=== PATIENT | female | born 1995 | race Caucasian/White ===

== ENCOUNTER 2016-10-24 01:28 | Emergency (ER) | payer OTHER ==
--- NOTE | 2016-10-24 02:03 | ED NURSING NOTES ---
Clinical Report - [facility] [address] [place] [place] [address] 10/24/2016 1:29 [id number] Triage time 01:40 Oct 24 2016. Acuity: LEVEL 3. Chief Complaint: (IUD problem). Alert. JULIO COMA SCORE: Julio Coma Scale: 15- eyes open spontaneously (4); best verbal response- oriented x 4 (5); best motor response- obeys commands (6). --01:49 Jimmie Fisher R.N. 01:40 10/24/16. BP: 125/83. HR: 94 (regular). RR: 16. O2 saturation: 99%. Temp: 100.2 F. Pain level now: 10. Additional comments: Vaginal Discomfort. --01:49 Jimmie Fisher R.N. Weight: 88.4 kg stated. Height/Length: 67 inches Per Patient. BMI: 30.6. --01:41 Jimmie Fisher R.N. Medications Nextplanan . --01:48 Jimmie Fisher R.N. The following entry was struck by Jimmie Fisher R.N., 01:48 (10/24/16) Reason - other. <<STRICKEN ENTRY-- None. --01:46 Jimmie Fisher R.N. --END STRIKE>>. Allergies Amoxicillin. Definite Moderate(hives) --01:46 Jimmie Fisher R.N. Medication/allergy information source: the patient. --01:49 Jimmie Fisher R.N. History Arrived by private vehicle. Historian: patient. Unaccompanied. Primary physician (Cynthia Mabry). ( Pt thought that he IUD had slipped out ~ 3 months ago and she made an appointment to have it checked and the clinic that she went to didn't even check but rather placed a control in her arm. Now she feels as though her IUD is trying to slip out.). This started today. Onset. (about 1 hour ago). Last oral intake by patient was (about 5 hours ago). Treatment PNEUMATIC TUBE FITTER: None. PAST MEDICAL HX: Immunizations: up-to-date. Last normal menstrual period- Nexplanan. Denies current . SURGERY HX: No history of previous surgery. SOCIAL HX: Heavy tobacco smoker (cigarette)- less than 1 pack per day. History of drug use: marijuana. No alcohol use. No infectious disease exposure. ABUSE ASSESSMENT: No report of abuse. FALL RISK ASSESSMENT: Fall risk assessment completed. No fall risk identified. NUTRITIONAL RISK ASSESSMENT: The nutritional risk assessment revealed no deficiencies. FUNCTIONAL ASSESSMENT: Functional assessment: no impairments noted. LEARNING NEEDS ASSESSMENT: The learning needs assessment revealed no barriers. SKIN INTEGRITY ASSESSMENT: Skin integrity risk assessment completed. No skin integrity risk identified. --01:49 Jimmie Fisher R.N. Treatment PNEUMATIC TUBE FITTER: Took Tylenol. Symptoms did not improve after treatment. --01:50 Jimmie Fisher R.N. PROBLEMS: Lifestyle / Substance Problems. Contusion. Pyelonephritis. Gastroesophageal Reflux Disease. Dysuria. Ovarian Cyst. Cystitis. . Abdominal Pain. Costochondritis. Bronchitis. Vaginal Bleeding. Immunizations. LNMP - Last Normal Menstrual Period. Sinusitis. URI. Chest Pain of GI Origin. --01:47 Jimmie Fisher R.N. ADDITIONAL SURGERIES: no known surgeries. Interventions ID band on patient. To treatment room. --01:49 Jimmie Fisher R.N. PHYSICAL ASSESSMENT Ambulatory to room. GENERAL / NEURO / PSYCH: Alert. Oriented X 4. HEENT: Mucous membranes are pink. RESPIRATORY: Respirations not labored. CVS: Normal heart rate and rhythm. GI / : Abdomen soft and nontender. No vaginal bleeding. No vaginal discharge. SKIN: Skin is warm and dry. --01:50 Jimmie Fisher R.N. NURSING PROGRESS NOTES Patient gowned. Reassurance given to the patient. Patient identifiers checked. Call light placed in reach. Side rails up x 1. Bed placed in lowest position. Brakes of bed on. Patient ready for evaluation- chart flagged and ED physician notified. --01:50 Jimmie Fisher R.N. DISPOSITION / DISCHARGE Departure time: 0205. --04:27 Jimmie Fisher R.N. 02:05. Condition at departure: unchanged. No learning barriers present. Discharge instructions provided and reviewed with the patient. Reviewed medication(s) (continue taking your usual medications). Reviewed referral to family practice for followup. Patient verbalized understanding. Written instructions provided in [place]ic. The patient was discharged by the physician. She was discharged home and unaccompanied at time of discharge. She left the Emergency Department ambulatory and via private vehicle. Patient driving. --04:30 Jimmie Fisher R.N. Locked/Released at 10/24/2016 4:31 by Jimmie Fisher R.N.
--- NOTE | 2016-10-24 02:03 | ED NURSING NOTES ---
Clinical Report - [facility] [address] [place] [address] 10/24/2016 1:29 [id number] Triage time 01:40 Oct 24 2016. Acuity: LEVEL 3. Chief Complaint: (IUD problem). Alert. JULIO COMA SCORE: Julio Coma Scale: 15- eyes open spontaneously (4); best verbal response- oriented x 4 (5); best motor response- obeys commands (6). --01:49 Jimmie Fisher R.N. 01:40 10/24/16. BP: 125/83. HR: 94 (regular). RR: 16. O2 saturation: 99%. Temp: 100.2 F. Pain level now: 10. Additional comments: Vaginal Discomfort. --01:49 Jimmie Fisher R.N. Weight: 88.4 kg stated. Height/Length: 67 inches Per Patient. BMI: 30.6. --01:41 Jimmie Fisher R.N. Medications Nextplanan . --01:48 Jimmie Fisher R.N. The following entry was struck by Jimmie Fisher R.N., 01:48 (10/24/16) Reason - other. <<STRICKEN ENTRY-- None. --01:46 Jimmie Fisher R.N. --END STRIKE>>. Allergies Amoxicillin. Definite Moderate(hives) --01:46 Jimmie Fisher R.N. Medication/allergy information source: the patient. --01:49 Jimmie Fisher R.N. History Arrived by private vehicle. Historian: patient. Unaccompanied. Primary physician (Cynthia Mabry). ( Pt thought that he IUD had slipped out ~ 3 months ago and she made an appointment to have it checked and the clinic that she went to didn't even check but rather placed a control in her arm. Now she feels as though her IUD is trying to slip out.). This started today. Onset. (about 1 hour ago). Last oral intake by patient was (about 5 hours ago). Treatment GEAR TESTER: None. PAST MEDICAL HX: Immunizations: up-to-date. Last normal menstrual period- Nexplanan. Denies current . SURGERY HX: No history of previous surgery. SOCIAL HX: Heavy tobacco smoker (cigarette)- less than 1 pack per day. History of drug use: marijuana. No alcohol use. No infectious disease exposure. ABUSE ASSESSMENT: No report of abuse. FALL RISK ASSESSMENT: Fall risk assessment completed. No fall risk identified. NUTRITIONAL RISK ASSESSMENT: The nutritional risk assessment revealed no deficiencies. FUNCTIONAL ASSESSMENT: Functional assessment: no impairments noted. LEARNING NEEDS ASSESSMENT: The learning needs assessment revealed no barriers. SKIN INTEGRITY ASSESSMENT: Skin integrity risk assessment completed. No skin integrity risk identified. --01:49 Jimmie Fisher R.N. Treatment GEAR TESTER: Took Tylenol. Symptoms did not improve after treatment. --01:50 Jimmie Fisher R.N. PROBLEMS: Lifestyle / Substance Problems. Contusion. Pyelonephritis. Gastroesophageal Reflux Disease. Dysuria. Ovarian Cyst. Cystitis. . Abdominal Pain. Costochondritis. Bronchitis. Vaginal Bleeding. Immunizations. LNMP - Last Normal Menstrual Period. Sinusitis. URI. Chest Pain of GI Origin. --01:47 Jimmie Fisher R.N. ADDITIONAL SURGERIES: no known surgeries. Interventions ID band on patient. To treatment room. --01:49 Jimmie Fisher R.N. PHYSICAL ASSESSMENT Ambulatory to room. GENERAL / NEURO / PSYCH: Alert. Oriented X 4. HEENT: Mucous membranes are pink. RESPIRATORY: Respirations not labored. CVS: Normal heart rate and rhythm. GI / : Abdomen soft and nontender. No vaginal bleeding. No vaginal discharge. SKIN: Skin is warm and dry. --01:50 Jimmie Fisher R.N. NURSING PROGRESS NOTES Patient gowned. Reassurance given to the patient. Patient identifiers checked. Call light placed in reach. Side rails up x 1. Bed placed in lowest position. Brakes of bed on. Patient ready for evaluation- chart flagged and ED physician notified. --01:50 Jimmie Fisher R.N. DISPOSITION / DISCHARGE Departure time: 0205. --04:27 Jimmie Fisher R.N. 02:05. Condition at departure: unchanged. No learning barriers present. Discharge instructions provided and reviewed with the patient. Reviewed medication(s) (continue taking your usual medications). Reviewed referral to family practice for followup. Patient verbalized understanding. Written instructions provided in Setswana. The patient was discharged by the physician. She was discharged home and unaccompanied at time of discharge. She left the Emergency Department ambulatory and via private vehicle. Patient driving. --04:30 Jimmie Fisher R.N. Locked/Released at 10/24/2016 4:31 by Jimmie Fisher R.N.
--- NOTE | 2016-10-24 02:03 | ED CLINICAL REPORT ---
Clinical Report - Physicians/Mid Levels [facility] [address] [place] [address] 10/24/2016 1:29 Patient: DANETTE JIMENEZ Time Seen: 01:48. Arrived- By private vehicle. Historian- patient. HISTORY OF PRESENT ILLNESS Chief Complaint: Feels an IUD string in the vagina. This started about 1 hour ago and still present. It was gradual in onset and has been waxing/waning. The symptoms are described as moderate. Modifying factors- worsened by movement and walking. Relieved by rest. No abdominal pain, pelvic pain, vaginal pain, low back pain or flank pain. No abnormal bleeding, vaginal discharge, vaginal itching, pain with urination or urinary frequency. No urgency of urination. Sexually active. Uses an IUD as a means of control (and depo implant). (Pt thought that he IUD had slipped out ~ 3 months ago and she made an appointment to have it checked and the clinic that she went to didn't even check but rather placed a control in her arm. Now she feels as though her IUD is trying to slip out - she can feel the string in the vaginal). Similar symptoms previously: Recent medical care: The patient was seen recently in a clinic. Seen for similar symptoms. REVIEW OF SYSTEMS No nausea, vomiting, diarrhea, black stools or headache. No chills, sore throat, cough, difficulty breathing or skin rash. No joint pain. PAST HISTORY ( Primary physician (Cynthia Mabry) PROBLEMS: Lifestyle / Substance Problems. Contusion. Pyelonephritis. Gastroesophageal Reflux Disease. Dysuria. Ovarian Cyst. Cystitis. . Abdominal Pain. Costochondritis. Bronchitis. Vaginal Bleeding. Sinusitis. URI. Chest Pain of GI Origin SURGERY HX: No history of previous surgery.). SOCIAL HISTORY Smoker- current status unknown. History of drug use: marijuana. No alcohol use. ADDITIONAL NOTES The nursing notes have been reviewed. PHYSICAL EXAM Vital Signs: 10/24/2016 01:40 BP: 125/83. HR: 94. RR: 16. O2 saturation: 99%. Temp: 100.2 F. Pain level now: 08/02. Temperature: 98.9 oral. Appearance: Alert. Oriented X3. Anxious. HEENT: Normal external inspection. ENT: Pharynx normal. Neck: Neck supple. CVS: Heart sounds normal. Respiratory: No respiratory distress. Breath sounds normal. Abdomen: Soft and nontender. Back: Normal external inspection. : (Deferred at patient request). Skin: Skin warm and dry. Normal skin color. No rash. Normal skin turgor. Extremities: Extremities nontender. No lower extremity edema. Neuro: Oriented X 3. Mood/affect normal. No motor deficit. No sensory deficit. LABS, X-RAYS, AND EKG Pulse Oximetry: 10/24/2016 01:40 O2 saturation: 99%. (FIO2 - room air). Interpretation: normal. PROGRESS AND PROCEDURES Course of Care: Pt is asymptomatic other than a IUD sensation of a string in the vagina. I have offered pelvic exam vs patient simply removing the IUD by pulling the string. If the IUD has become dislodged it will easily be removed. Pt prefers to try this at home rather than have pelvic now. She had the IUD placed at [facility] and will return to this clinic prn or return to emergency for new or worsening symptoms. Patient/family counseled. Old ED records reviewed. Disposition: Discharged. Condition: stable and improved. CLINICAL IMPRESSION Discomfort from IUD (feels string). INSTRUCTIONS Drink plenty of fluids. Do not smoke. Seek medical help to quit smoking. Warnings: Further evaluation is necessary. It is very important to follow up with a physician. GENERAL WARNINGS: Return or contact your physician immediately if your condition worsens or changes unexpectedly, if not improving as expected, or if other problems arise. Your Current Medications: CONTINUE TAKING THE FOLLOWING MEDICATIONS: Nextplanan *. Follow-up: Follow up with your doctor tomorrow. (Electronically signed by David Malin DO 10/24/2016 7:46)
--- NOTE | 2016-10-24 07:46 | ED MAR SUMMARY ---
..... Medication Administration Record [facility] [address], [place] [id number] Patient: DANETTE JIMENEZ Visit ID: [id number] 21y, F Weight: 88.4 kg Height/Length: 67 in BMI: 30.6 ALLERGIES: Amoxicillin
--- NOTE | 2016-10-24 07:46 | ED MED RECONCILIATION SUMMARY ---
Patient: DANETTE JIMENEZ Medication Reconciliation Report [facility] VisitID: [id number] [address] [place] [place] [address] 21y, F Registration Date/Time: 10/24/2016 Weight: 88.4 kg Height/Length: 67 in. BMI: 30.6 ALLERGIES: Amoxicillin The patient's Home Medications are listed below: CONTINUE TAKING THE FOLLOWING MEDICATIONS: Nextplanan The source(s) of the original Home Medication information: patient The following Medications were given to the patient in the Emergency Department: None. The following Medications were prescribed to the patient: None.
--- NOTE | 2016-10-24 07:46 | ED DISCHARGE INSTRUCTIONS ---
Patient: DANETTE JIMENEZ General Instructions [facility] VisitID: [id number] [place] [address] 21y, F Registration Date/Time: 10/24/2016 Discomfort from IUD (feels string). INSTRUCTIONS Drink plenty of fluids. Do not smoke. Seek medical help to quit smoking. Warnings: Further evaluation is necessary. It is very important to follow up with a physician. GENERAL WARNINGS: Return or contact your physician immediately if your condition worsens or changes unexpectedly, if not improving as expected, or if other problems arise. Your Current Medications: CONTINUE TAKING THE FOLLOWING MEDICATIONS: Nextplanan *. Follow-up: Follow up with your doctor tomorrow. ADDITIONAL INFORMATION How To Quit Smoking Smoking is one of the hardest habits to break. About half of all those who have ever smoked have been able to quit, and most of those (about 70%) who still smoke want to quit. Here are some of the best ways to stop smoking. Keep Trying: It takes most smokers about 8 tries before they are finally able to fully quit. So, the more often you try and fail, the better your chance of quitting the next time! So, don't give up! Go Cold [place]: Most ex-smokers quit cold turkey. Trying to cut back gradually doesn't seem to work as well, perhaps because it continues the smoking habit. Also, it is possible to fool yourself by inhaling more while smoking fewer cigarettes. This results in the same amount of nicotine in your body! Get Support: Support programs can make an important difference, especially for the heavy smoker. These groups offer lectures, methods to change your behavior and peer support. Call the free national Quitline for more information. 563-HBXY-LYV (143-373-5094). Low-cost or free programs are offered by many hospitals, local chapters of the [place] [employer] (894-847-7206) and the [place] [employer] (492-422-2122). Support at home is important too. Non-smokers can help by offering praise and encouragement. If the smoker fails to quit, encourage them to try again! Payw-Bym-Lwgqpih Medicines: For those who can't quit on their own, Nicotine Replacement Therapy (NRT) may make quitting much easier. Certain aids such as the nicotine patch, gum and lozenge are available without a prescription. However, it is best to use these under the guidance of your doctor. The skin patch provides a steady supply of nicotine to the body. Nicotine gum and lozenge gives temporary bursts of low levels of nicotine. Both methods take the edge off the craving for cigarettes. WARNING: If you feel symptoms of nicotine overdose, such as nausea, vomiting, dizziness, weakness, or fast heartbeat, stop using these and see your doctor. Prescription Medicines: After evaluating your smoking patterns and prior attempts at quitting, your doctor may offer a prescription medicine such as bupropion (Zyban, Wellbutrin), varenicline (Chantix, Champix), a niocotine inhaler or nasal spray. Each has its unique advantage and side effects which your doctor can review with you. Health Benefits Of Quitting: The benefits of quitting start right away and keep improving the longer you go without smokin minutes: blood pressure and pulse return to normal 8 hours: oxygen levels return to normal 2 days: ability to smell and taste begins to improve as damaged nerves start to regrow 2-3 weeks: circulation and lung function improves 1-9 months: decreased cough, congestion and shortness of breath; less tired 1 year: risk of heart attack decreases by half 5 years: risk of lung cancer decreases by half; risk of stroke becomes the same as a non-smoker For information about how to quit smoking, visit the following links: National Cancer [place] , Clearing the Air, Quit Smoking Today - an online booklet. http://www.smokefree.gov/pubs/clearing_the_air.pdf Smokefree.gov http://smokefree.gov/ QuitNet http://www.quitnet.com/ You have been given the following additional information: Smoking Cessation (Electronically signed by David Malin DO 10/24/2016 7:46)
--- NOTE | 2016-10-24 07:46 | ED MED RECONCILIATION SUMMARY ---
Patient: DANETTE JIMENEZ Medication Reconciliation Report [facility] VisitID: [id number] [address] [place] [address] 21y, F Registration Date/Time: 10/24/2016 Weight: 88.4 kg Height/Length: 67 in. BMI: 30.6 ALLERGIES: Amoxicillin The patient's Home Medications are listed below: CONTINUE TAKING THE FOLLOWING MEDICATIONS: Nextplanan The source(s) of the original Home Medication information: patient The following Medications were given to the patient in the Emergency Department: None. The following Medications were prescribed to the patient: None.
--- NOTE | 2016-10-24 07:46 | ED MAR SUMMARY ---
..... Medication Administration Record [facility] [address], [place] [id number] Patient: DANETTE JIMENEZ Visit ID: [id number] 21y, F Weight: 88.4 kg Height/Length: 67 in BMI: 30.6 ALLERGIES: Amoxicillin
--- NOTE | 2016-10-24 07:46 | ED DISCHARGE INSTRUCTIONS ---
Patient: DANETTE JIMENEZ General Instructions [facility] VisitID: [id number] [place] [address] 21y, F Registration Date/Time: 10/24/2016 Discomfort from IUD (feels string). INSTRUCTIONS Drink plenty of fluids. Do not smoke. Seek medical help to quit smoking. Warnings: Further evaluation is necessary. It is very important to follow up with a physician. GENERAL WARNINGS: Return or contact your physician immediately if your condition worsens or changes unexpectedly, if not improving as expected, or if other problems arise. Your Current Medications: CONTINUE TAKING THE FOLLOWING MEDICATIONS: Nextplanan *. Follow-up: Follow up with your doctor tomorrow. ADDITIONAL INFORMATION How To Quit Smoking Smoking is one of the hardest habits to break. About half of all those who have ever smoked have been able to quit, and most of those (about 70%) who still smoke want to quit. Here are some of the best ways to stop smoking. Keep Trying: It takes most smokers about 8 tries before they are finally able to fully quit. So, the more often you try and fail, the better your chance of quitting the next time! So, don't give up! Go Cold [place]: Most ex-smokers quit cold turkey. Trying to cut back gradually doesn't seem to work as well, perhaps because it continues the smoking habit. Also, it is possible to fool yourself by inhaling more while smoking fewer cigarettes. This results in the same amount of nicotine in your body! Get Support: Support programs can make an important difference, especially for the heavy smoker. These groups offer lectures, methods to change your behavior and peer support. Call the free national Quitline for more information. 264-KCZN-FFS (811-499-8841). Low-cost or free programs are offered by many hospitals, local chapters of the [place] [employer] (400-194-2604) and the [place] [employer] (951-326-7835). Support at home is important too. Non-smokers can help by offering praise and encouragement. If the smoker fails to quit, encourage them to try again! Dqmh-Wvx-Dqiwzuo Medicines: For those who can't quit on their own, Nicotine Replacement Therapy (NRT) may make quitting much easier. Certain aids such as the nicotine patch, gum and lozenge are available without a prescription. However, it is best to use these under the guidance of your doctor. The skin patch provides a steady supply of nicotine to the body. Nicotine gum and lozenge gives temporary bursts of low levels of nicotine. Both methods take the edge off the craving for cigarettes. WARNING: If you feel symptoms of nicotine overdose, such as nausea, vomiting, dizziness, weakness, or fast heartbeat, stop using these and see your doctor. Prescription Medicines: After evaluating your smoking patterns and prior attempts at quitting, your doctor may offer a prescription medicine such as bupropion (Zyban, Wellbutrin), varenicline (Chantix, Champix), a niocotine inhaler or nasal spray. Each has its unique advantage and side effects which your doctor can review with you. Health Benefits Of Quitting: The benefits of quitting start right away and keep improving the longer you go without smokin minutes: blood pressure and pulse return to normal 8 hours: oxygen levels return to normal 2 days: ability to smell and taste begins to improve as damaged nerves start to regrow 2-3 weeks: circulation and lung function improves 1-9 months: decreased cough, congestion and shortness of breath; less tired 1 year: risk of heart attack decreases by half 5 years: risk of lung cancer decreases by half; risk of stroke becomes the same as a non-smoker For information about how to quit smoking, visit the following links: National Cancer [place] , Clearing the Air, Quit Smoking Today - an online booklet. http://www.smokefree.gov/pubs/clearing_the_air.pdf Smokefree.gov http://smokefree.gov/ QuitNet http://www.quitnet.com/ You have been given the following additional information: Smoking Cessation (Electronically signed by David Malin DO 10/24/2016 7:46)
== END 2016-10-24 02:05 | disposition home or self-care (01) ==
LOC: ED SRH 01:28
DX: Z97.5 Presence of (intrauterine) contraceptive device (principal); F17.210 Nicotine dependence, cigarettes, uncomplicated

== ENCOUNTER 2017-01-03 14:31 | Emergency (ER) | payer OTHER ==
--- NOTE | 2017-01-03 15:02 | ED NURSING NOTES ---
Clinical Report - Nurses [facility] [address] [place] [address] 01/03/2017 14:32 Patient: DANETTE JIMENEZ TRIAGE Triage time 14:38. Acuity: LEVEL 3. Chief Complaint: JAW PAIN and (chipped tooth 2 months ago. Pain in the lt upper jaw, throbbing.). Alert. No acute distress. SEPSIS SCREEN: Sepsis Screen: negative. Negative (no infection suspected/documented). --14:42 Michelle Winter R.N. 14:39 01/03/17. BP: 149/77 taken on the left arm, while sitting. HR: 90. RR: 20. O2 saturation: 99%. Temp: 99.6 F. Pain level now: 03/02. --14:42 Michelle Winter R.N. 14:39 01/03/17. BP: 149/77 taken on the left arm, while sitting. HR: 90. RR: 20. O2 saturation: 99%. Temp: 99.6 F. Pain level now: 03/02. --14:42 Michelle Winter R.N. Weight: 106.5 kg stated. Height/Length: 67 inches Per Patient. BMI: 36.8. --14:42 Michelle Winter R.N. Medications Nextplanan . --14:41 Michelle Winter R.N. Allergies Amoxicillin. Definite Moderate(hives) --14:41 Michelle Winter R.N. History Arrived by private vehicle. Historian: patient. Primary physician (jordy). This started yesterday. She has had facial pain. 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 PAST MEDICAL HX: Immunizations: up-to-date. Uses depo implants. SOCIAL HX: Light tobacco smoker (cigarette)- less than 1/2 a pack per day. No alcohol use or drug use. FALL RISK ASSESSMENT: Fall risk assessment completed. No fall risk identified. NUTRITIONAL RISK ASSESSMENT: The nutritional risk assessment revealed no deficiencies. FUNCTIONAL ASSESSMENT: Functional assessment: no impairments noted. LEARNING NEEDS ASSESSMENT: The learning needs assessment revealed no barriers. SKIN INTEGRITY ASSESSMENT: Skin integrity risk assessment completed. No skin integrity risk identified. --14:42 Michelle Winter R.N. PROBLEMS: Lifestyle / Substance Problems. Contusion. Pyelonephritis. Gastroesophageal Reflux Disease. Dysuria. Ovarian Cyst. Cystitis. Abdominal Pain. Costochondritis. Bronchitis. Vaginal Bleeding. Immunizations. LNMP - Last Normal Menstrual Period. Sinusitis. URI. Chest Pain of GI Origin. --14:41 Michelle Winter R.N. ADDITIONAL SURGERIES: no known surgeries. Interventions ID band on patient. To room. --14:42 Michelle Winter R.N. PHYSICAL ASSESSMENT Ambulatory to room. GENERAL / NEURO / PSYCH: Alert. Oriented X 4. Appears in pain and anxious. HEENT: Voice within normal limits. Dental tenderness (left upper molar). Mucous membranes are pink. SKIN: Skin is warm and dry. Normal skin turgor. --14:43 Michelle Winter R.N. NURSING PROGRESS NOTES Head of bed elevated. Two patient identifiers checked. Call light placed in reach. Side rails up x 2. Bed placed in lowest position. Brakes of bed on. Patient ready for evaluation. --14:43 Michelle Winter R.N. DISPOSITION / DISCHARGE 15:22 01/03/17. Condition at departure: unchanged. No learning barriers present. Discharge instructions provided and reviewed with the patient. Reviewed medication(s) side effects, precautions, dosing and course information. Prescription(s) given to the patient. Patient verbalized understanding. Written instructions provided in Mac[place]. The patient was discharged home. She left the Emergency Department ambulatory and via private vehicle. Patient driving. Medication list reviewed and validated. --15:22 Michelle Wintre R.N. 14:39 01/03/17. BP: 149/77 taken on the left arm, while sitting. HR: 90. RR: 20. O2 saturation: 99%. Temp: 99.6 F. Pain level now: 03/02. --15:22 Michelle Winter R.N. Locked/Released at 01/03/2017 15:23 by Michelle Winter R.N.
--- NOTE | 2017-01-03 15:02 | ED NURSING NOTES ---
Clinical Report - Nurses [facility] [address] [place] [address] 01/03/2017 14:32 Patient: DANETTE JIMENEZ TRIAGE Triage time 14:38. Acuity: LEVEL 3. Chief Complaint: JAW PAIN and (chipped tooth 2 months ago. Pain in the lt upper jaw, throbbing.). Alert. No acute distress. SEPSIS SCREEN: Sepsis Screen: negative. Negative (no infection suspected/documented). --14:42 Michelle Winter R.N. 14:39 01/03/17. BP: 149/77 taken on the left arm, while sitting. HR: 90. RR: 20. O2 saturation: 99%. Temp: 99.6 F. Pain level now: 03/02. --14:42 Michelle Winter R.N. 14:39 01/03/17. BP: 149/77 taken on the left arm, while sitting. HR: 90. RR: 20. O2 saturation: 99%. Temp: 99.6 F. Pain level now: 03/02. --14:42 Michelle Winter R.N. Weight: 106.5 kg stated. Height/Length: 67 inches Per Patient. BMI: 36.8. --14:42 Michelle Winter R.N. Medications Nextplanan . --14:41 Michelle Winter R.N. Allergies Amoxicillin. Definite Moderate(hives) --14:41 Michelle Winter R.N. History Arrived by private vehicle. Historian: patient. Primary physician (jordy). This started yesterday. She has had facial pain. 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 PAST MEDICAL HX: Immunizations: up-to-date. Uses depo implants. SOCIAL HX: Light tobacco smoker (cigarette)- less than 1/2 a pack per day. No alcohol use or drug use. FALL RISK ASSESSMENT: Fall risk assessment completed. No fall risk identified. NUTRITIONAL RISK ASSESSMENT: The nutritional risk assessment revealed no deficiencies. FUNCTIONAL ASSESSMENT: Functional assessment: no impairments noted. LEARNING NEEDS ASSESSMENT: The learning needs assessment revealed no barriers. SKIN INTEGRITY ASSESSMENT: Skin integrity risk assessment completed. No skin integrity risk identified. --14:42 Michelle Winter R.N. PROBLEMS: Lifestyle / Substance Problems. Contusion. Pyelonephritis. Gastroesophageal Reflux Disease. Dysuria. Ovarian Cyst. Cystitis. Abdominal Pain. Costochondritis. Bronchitis. Vaginal Bleeding. Immunizations. LNMP - Last Normal Menstrual Period. Sinusitis. URI. Chest Pain of GI Origin. --14:41 Michelle Winter R.N. ADDITIONAL SURGERIES: no known surgeries. Interventions ID band on patient. To room. --14:42 Michelle Winter R.N. PHYSICAL ASSESSMENT Ambulatory to room. GENERAL / NEURO / PSYCH: Alert. Oriented X 4. Appears in pain and anxious. HEENT: Voice within normal limits. Dental tenderness (left upper molar). Mucous membranes are pink. SKIN: Skin is warm and dry. Normal skin turgor. --14:43 Michelle Winter R.N. NURSING PROGRESS NOTES Head of bed elevated. Two patient identifiers checked. Call light placed in reach. Side rails up x 2. Bed placed in lowest position. Brakes of bed on. Patient ready for evaluation. --14:43 Michelle Winter R.N. DISPOSITION / DISCHARGE 15:22 01/03/17. Condition at departure: unchanged. No learning barriers present. Discharge instructions provided and reviewed with the patient. Reviewed medication(s) side effects, precautions, dosing and course information. Prescription(s) given to the patient. Patient verbalized understanding. Written instructions provided in Kosovan. The patient was discharged home. She left the Emergency Department ambulatory and via private vehicle. Patient driving. Medication list reviewed and validated. --15:22 Michelle Winter R.N. 14:39 01/03/17. BP: 149/77 taken on the left arm, while sitting. HR: 90. RR: 20. O2 saturation: 99%. Temp: 99.6 F. Pain level now: 03/02. --15:22 Michelle Winter R.N. Locked/Released at 01/03/2017 15:23 by Michelle Winter R.N.
--- NOTE | 2017-01-03 15:02 | ED CLINICAL REPORT ---
Clinical Report - Physicians/Mid Levels [facility] [address] [place] [address] 01/03/2017 14:32 Patient: DANETTE JIMENEZ Time Seen: 14:45; initial patient contact, initial documentation, patient care assumed. Arrived- By private vehicle. Historian- patient. HISTORY OF PRESENT ILLNESS Chief Complaint: DENTAL PAIN. This started yesterday and is still present. It was gradual in onset. Pain described as severe. No sore throat, mouth sores, nasal discharge or congestion or ear pain. No toothache or swollen jaw or face. She has had severe left jaw pain. She has had severe left-sided facial pain. (upper L molar broke off a couple of mos ago, went to dentist was told she needed root canal, no money for root canal, so no f/u yet). Similar symptoms previously: None. Recent medical care: Not recently seen/assessed. REVIEW OF SYSTEMS No difficulty breathing. All systems otherwise negative, except as recorded above. PAST HISTORY See nurses notes. PROBLEMS: Lifestyle / Substance Problems. Contusion. Pyelonephritis. Gastroesophageal Reflux Disease. Dysuria. Ovarian Cyst. Cystitis. Abdominal Pain. Costochondritis. Bronchitis. Vaginal Bleeding. Immunizations. LNMP - Last Normal Menstrual Period. Sinusitis. URI. Chest Pain of GI Origin. --14:41 Michelle Winter, RCharissa. ADDITIONAL SURGERIES: no known surgeries. SOCIAL HISTORY Light tobacco smoker. History of drug use. Is a recovering addict. No alcohol use. No recent travel. Is a local resident. FAMILY HISTORY Negative. ADDITIONAL NOTES The nursing notes have been reviewed with agreement regarding the chief complaint, HPI, ROS, PMH and patient medications and allergies. PHYSICAL EXAM Vital Signs: 01/03/2017 14:39 BP: 149/77. HR: 90. RR: 20. O2 saturation: 99%. Temp: 99.6 F. Pain level now: 9/10. Have been reviewed as normal and appear to be correct. Appearance: Alert. No acute distress. Anxious. (and tearful). Head: Normal external inspection. Eyes: Pupils equal, round and reactive to light. Conjunctivae and eyelids normal. ENT: Mild, localized dental decay (upper left third molar) (tooth has small piece missing, no obvious signs of decay). No gingival tenderness, induration, swelling or fluctuance. Ears normal. Nose normal. Trismus present. Pharynx normal. Lips normal. Gums normal. Uvula midline. Neck: Normal inspection. Trachea midline. No adenopathy. Thyroid normal. Neck supple. Respiratory: No respiratory distress. Abdomen: Mildly obese. Skin: Normal skin color. No rash. Normal skin turgor. Extremities: Extremities exhibit normal ROM. Extremities nontender. Neuro: Oriented X 3. No motor deficit. No sensory deficit. PROGRESS AND PROCEDURES Patient counseled in person regarding the patient's stable condition and diagnosis. Differential Diagnosis: Other possible considerations: substance abuse, dental pain, caries, abscess. Above considerations are based on history and physical exam. Differential diagnosis was discussed with patient. Disposition: Discharged home in good and unchanged condition (15:02). Condition: good and stable. CLINICAL IMPRESSION Severe dental pain. INSTRUCTIONS Warnings: GENERAL WARNINGS: Return or contact your physician immediately if your condition worsens or changes unexpectedly, if not improving as expected, or if other problems arise. Specifically return if problem worsens. Prescription Medications: Cleocin 150 mg: take 1 capsule orally every 8 hours for 7 days. No refill. Ultram 50 mg tablets: take 1-2 orally every 6 hours as needed for pain. Dispense twenty (20). No refills. Substitution is permissible. Follow-up: Follow up with a dentist in about three days as needed. Call for an appointment. Summary of care provided to patient. Understanding of the discharge instructions verbalized by patient. (Electronically signed by Rivka Drake A.R.N.P. 01/03/2017 17:56)
--- NOTE | 2017-01-03 17:56 | ED MED RECONCILIATION SUMMARY ---
Patient: DANETTE JIMENEZ Medication Reconciliation Report [facility] VisitID: [id number] [address] [place] [place] [address] 21y, F Registration Date/Time: 01/03/2017 Weight: 106.5 kg Height/Length: 67 in. BMI: 36.8 ALLERGIES: Amoxicillin The patient's Home Medications are listed below: THE FOLLOWING MEDICATIONS NEED TO BE RECONCILED: Nextplanan The source(s) of the original Home Medication information: Not obtained. The following Medications were given to the patient in the Emergency Department: None. The following Medications were prescribed to the patient: Cleocin 150 mg: take 1 capsule orally every 8 hours for 7 days. No refill. -- Rivka Drake A.R.N.P. Ultram 50 mg tablets: take 1-2 orally every 6 hours as needed for pain. Dispense twenty (20). No refills. Substitution is permissible. -- Rivka Drake A.R.N.P.
--- NOTE | 2017-01-03 17:56 | ED DISCHARGE INSTRUCTIONS ---
Patient: DANETTE JIMENEZ General Instructions [facility] VisitID: [id number] [address] [place] [address] 21y, F Registration Date/Time: 01/03/2017 Severe dental pain. INSTRUCTIONS Warnings: GENERAL WARNINGS: Return or contact your physician immediately if your condition worsens or changes unexpectedly, if not improving as expected, or if other problems arise. Specifically return if problem worsens. Prescription Medications: Cleocin 150 mg: take 1 capsule orally every 8 hours for 7 days. No refill. Ultram 50 mg tablets: take 1-2 orally every 6 hours as needed for pain. Dispense twenty (20). No refills. Substitution is permissible. Follow-up: Follow up with a dentist in about three days as needed. Call for an appointment. Summary of care provided to patient. Understanding of the discharge instructions verbalized by patient. ADDITIONAL INFORMATION Dental Pain A crack or cavity in the tooth, which exposes the sensitive inner area of the tooth can cause tooth pain. An infection in the gum or the root of the tooth can cause pain and swelling. The pain is often made worse by drinking hot or cold fluids, or biting on hard foods. Pain may spread from the tooth to the ear or jaw on the same side. Home Care: Avoid hot and cold foods and liquids since your tooth may be sensitive to temperature changes. If your tooth is chipped or cracked, or if there is a large open cavity, apply OIL OF CLOVES (available [id number]-zoamhbq in drug stores) directly to the tooth to reduce pain. Some pharmacies carry an [id number] "toothache kit." This contains a paste, which can be applied over the exposed tooth to decrease sensitivity. A cold pack on your jaw over the sore area may help reduce pain. You may use acetaminophen (Tylenol) or ibuprofen (Motrin, Advil) to control pain, unless another medicine was prescribed. [ NOTE: If you have chronic liver or kidney disease or ever had a stomach ulcer or GI bleeding, talk with your doctor before using these medicines.] If you have signs of an infection, an antibiotic will be given. Take it as directed. Follow-Up as directed with a dentist. Your pain may go away with the treatment given. However, only a dentist can fully evaluate and treat the cause and prevent the pain from coming back again. TOOTHACHE IS A SIGN OF DISEASE IN YOUR TOOTH AND SHOULD BE EXAMINED AND TREATED BY A DENTIST. Get Prompt Medical Attention if any of the following occur: Your face becomes swollen or red Pain worsens or spreads to the neck Fever over 100.4 F (38.0 C) Unusual drowsiness; headache or stiff neck; weakness or fainting Pus drains from the tooth Difficulty swallowing or breathing Clindamycin Hydrochloride Oral capsule What is this medicine? CLINDAMYCIN (MARLA Gautam) is a lincosamide antibiotic. It is used to treat certain kinds of bacterial infections. It will not work for colds, flu, or other viral infections. How should I use this medicine? Take this medicine by mouth with a full glass of water. Follow the directions on the prescription label. You can take this medicine with food or on an empty stomach. If the medicine upsets your stomach, take it with food. Take your medicine at regular intervals. Do not take your medicine more often than directed. Take all of your medicine as directed even if you think your are better. Do not skip doses or stop your medicine early. Talk to your advance seal delivery system maintainer regarding the use of this medicine in children. Special care may be needed. What side effects may I notice from receiving this medicine? Side effects that you should report to your doctor or health career development facilitator as soon as possible: allergic reactions like skin rash, itching or hives, swelling of the face, lips, or tongue dark urine pain on swallowing redness, blistering, peeling or loosening of the skin, including inside the mouth unusual bleeding or bruising unusually weak or tired yellowing of eyes or skin Side effects that usually do not require medical attention (report to your doctor or health career development facilitator if they continue or are bothersome): diarrhea itching in the rectal or genital area joint pain nausea, vomiting stomach pain What may interact with this medicine? chloramphenicol erythromycin kaolin products What if I miss a dose? If you miss a dose, take it as soon as you can. If it is almost time for your next dose, take only that dose. Do not take double or extra doses. Where should I keep my medicine? Keep out of the reach of children. Store at room temperature between 20 and 25 degrees C (68 and 77 degrees F). Throw away any unused medicine after the expiration date. What should I tell my health care provider before I take this medicine? They need to know if you have any of these conditions: kidney disease liver disease stomach problems like colitis an unusual or allergic reaction to clindamycin, lincomycin, or other medicines, foods, dyes like tartrazine or preservatives or trying to get breast-feeding What should I watch for while using this medicine? Tell your doctor or healthcare professional if your symptoms do not start to get better or if they get worse. Do not treat diarrhea with over the counter products. Contact your doctor if you have diarrhea that lasts more than 2 days or if it is severe and watery. Tramadol Hydrochloride Oral tablet What is this medicine? TRAMADOL (TRA ma dole) is a pain reliever. It is used to treat moderate to severe pain in adults. How should I use this medicine? Take this medicine by mouth with a full glass of water. Follow the directions on the prescription label. If the medicine upsets your stomach, take it with food or milk. Do not take more medicine than you are told to take. Talk to your advance seal delivery system maintainer regarding the use of this medicine in children. Special care may be needed. What side effects may I notice from receiving this medicine? Side effects that you should report to your doctor or health career development facilitator as soon as possible: allergic reactions like skin rash, itching or hives, swelling of the face, lips, or tongue breathing difficulties, wheezing confusion itching light headedness or fainting spells redness, blistering, peeling or loosening of the skin, including inside the mouth seizures Side effects that usually do not require medical attention (report to your doctor or health career development facilitator if they continue or are bothersome): constipation dizziness drowsiness headache nausea, vomiting What may interact with this medicine? Do not take this medicine with any of the following medications: MAOIs like Carbex, Eldepryl, Marplan, Nardil, and Parnate This medicine may also interact with the following medications: alcohol or medicines that contain alcohol antihistamines benzodiazepines bupropion carbamazepine or oxcarbazepine clozapine cyclobenzaprine digoxin furazolidone linezolid medicines for depression, anxiety, or psychotic disturbances medicines for migraine headache like almotriptan, eletriptan, frovatriptan, naratriptan, rizatriptan, sumatriptan, zolmitriptan medicines for pain like pentazocine, buprenorphine, butorphanol, meperidine, nalbuphine, and propoxyphene medicines for sleep muscle relaxants naltrexone phenobarbital phenothiazines like perphenazine, thioridazine, chlorpromazine, mesoridazine, fluphenazine, prochlorperazine, promazine, and trifluoperazine procarbazine warfarin What if I miss a dose? If you miss a dose, take it as soon as you can. If it is almost time for your next dose, take only that dose. Do not take double or extra doses. Where should I keep my medicine? Keep out of the reach of children. Store at room temperature between 15 and 30 degrees C (59 and 86 degrees F). Keep container tightly closed. Throw away any unused medicine after the expiration date. What should I tell my health care provider before I take this medicine? They need to know if you have any of these conditions: brain tumor depression drug abuse or addiction head injury if you frequently drink alcohol containing drinks kidney disease or trouble passing urine liver disease lung disease, asthma, or breathing problems seizures or epilepsy suicidal thoughts, plans, or attempt; a previous suicide attempt by you or a family member an unusual or allergic reaction to tramadol, codeine, other medicines, foods, dyes, or preservatives or trying to get breast-feeding What should I watch for while using this medicine? Tell your doctor or health career development facilitator if your pain does not go away, if it gets worse, or if you have new or a different type of pain. You may develop tolerance to the medicine. Tolerance means that you will need a higher dose of the medicine for pain relief. Tolerance is normal and is expected if you take this medicine for a long time. Do not suddenly stop taking your medicine because you may develop a severe reaction. Your body becomes used to the medicine. This does NOT mean you are addicted. Addiction is a behavior related to getting and using a drug for a non-medical reason. If you have pain, you have a medical reason to take pain medicine. Your doctor will tell you how much medicine to take. If your doctor wants you to stop the medicine, the dose will be slowly lowered over time to avoid any side effects. You may get drowsy or dizzy. Do not drive, use machinery, or do anything that needs mental alertness until you know how this medicine affects you. Do not stand or sit up quickly, especially if you are an older patient. This reduces the risk of dizzy or fainting spells. Alcohol can increase or decrease the effects of this medicine. Avoid alcoholic drinks. You may have constipation. Try to have a bowel movement at least every 2 to 3 days. If you do not have a bowel movement for 3 days, call your doctor or health career development facilitator. Your mouth may get dry. Chewing sugarless gum or sucking hard candy, and drinking plenty of water may help. Contact your doctor if the problem does not go away or is severe. You have been given the following additional information: Dental Pain Clindamycin Hydrochloride Oral capsule Tramadol Hydrochloride Oral tablet (Electronically signed by Rivka Drake A.R.N.P. 01/03/2017 17:56)
--- NOTE | 2017-01-03 17:56 | ED MAR SUMMARY ---
..... Medication Administration Record [facility] [address], [place] [id number] Patient: DANETTE JIMENEZ Visit ID: [id number] 21y, F Weight: 106.5 kg Height/Length: 67 in BMI: 36.8 ALLERGIES: Amoxicillin
--- NOTE | 2017-01-03 17:56 | ED MAR SUMMARY ---
..... Medication Administration Record [facility] [address] [place], [place] [id number] Patient: DANETTE JIMENEZ Visit ID: [id number] 21y, F Weight: 106.5 kg Height/Length: 67 in BMI: 36.8 ALLERGIES: Amoxicillin
--- NOTE | 2017-01-03 17:56 | ED DISCHARGE INSTRUCTIONS ---
Patient: DANETTE JIMENEZ General Instructions [facility] VisitID: [id number] [place] [address] 21y, F Registration Date/Time: 01/03/2017 Severe dental pain. INSTRUCTIONS Warnings: GENERAL WARNINGS: Return or contact your physician immediately if your condition worsens or changes unexpectedly, if not improving as expected, or if other problems arise. Specifically return if problem worsens. Prescription Medications: Cleocin 150 mg: take 1 capsule orally every 8 hours for 7 days. No refill. Ultram 50 mg tablets: take 1-2 orally every 6 hours as needed for pain. Dispense twenty (20). No refills. Substitution is permissible. Follow-up: Follow up with a dentist in about three days as needed. Call for an appointment. Summary of care provided to patient. Understanding of the discharge instructions verbalized by patient. ADDITIONAL INFORMATION Dental Pain A crack or cavity in the tooth, which exposes the sensitive inner area of the tooth can cause tooth pain. An infection in the gum or the root of the tooth can cause pain and swelling. The pain is often made worse by drinking hot or cold fluids, or biting on hard foods. Pain may spread from the tooth to the ear or jaw on the same side. Home Care: Avoid hot and cold foods and liquids since your tooth may be sensitive to temperature changes. If your tooth is chipped or cracked, or if there is a large open cavity, apply OIL OF CLOVES (available [id number] in drug stores) directly to the tooth to reduce pain. Some pharmacies carry an scfl-oya-dahwkus "toothache kit." This contains a paste, which can be applied over the exposed tooth to decrease sensitivity. A cold pack on your jaw over the sore area may help reduce pain. You may use acetaminophen (Tylenol) or ibuprofen (Motrin, Advil) to control pain, unless another medicine was prescribed. [ NOTE: If you have chronic liver or kidney disease or ever had a stomach ulcer or GI bleeding, talk with your doctor before using these medicines.] If you have signs of an infection, an antibiotic will be given. Take it as directed. Follow-Up as directed with a dentist. Your pain may go away with the treatment given. However, only a dentist can fully evaluate and treat the cause and prevent the pain from coming back again. TOOTHACHE IS A SIGN OF DISEASE IN YOUR TOOTH AND SHOULD BE EXAMINED AND TREATED BY A DENTIST. Get Prompt Medical Attention if any of the following occur: Your face becomes swollen or red Pain worsens or spreads to the neck Fever over 100.4 F (38.0 C) Unusual drowsiness; headache or stiff neck; weakness or fainting Pus drains from the tooth Difficulty swallowing or breathing Clindamycin Hydrochloride Oral capsule What is this medicine? CLINDAMYCIN (MARLA Gautam) is a lincosamide antibiotic. It is used to treat certain kinds of bacterial infections. It will not work for colds, flu, or other viral infections. How should I use this medicine? Take this medicine by mouth with a full glass of water. Follow the directions on the prescription label. You can take this medicine with food or on an empty stomach. If the medicine upsets your stomach, take it with food. Take your medicine at regular intervals. Do not take your medicine more often than directed. Take all of your medicine as directed even if you think your are better. Do not skip doses or stop your medicine early. Talk to your territory representative regarding the use of this medicine in children. Special care may be needed. What side effects may I notice from receiving this medicine? Side effects that you should report to your doctor or health residential care officer as soon as possible: allergic reactions like skin rash, itching or hives, swelling of the face, lips, or tongue dark urine pain on swallowing redness, blistering, peeling or loosening of the skin, including inside the mouth unusual bleeding or bruising unusually weak or tired yellowing of eyes or skin Side effects that usually do not require medical attention (report to your doctor or health residential care officer if they continue or are bothersome): diarrhea itching in the rectal or genital area joint pain nausea, vomiting stomach pain What may interact with this medicine? chloramphenicol erythromycin kaolin products What if I miss a dose? If you miss a dose, take it as soon as you can. If it is almost time for your next dose, take only that dose. Do not take double or extra doses. Where should I keep my medicine? Keep out of the reach of children. Store at room temperature between 20 and 25 degrees C (68 and 77 degrees F). Throw away any unused medicine after the expiration date. What should I tell my health care provider before I take this medicine? They need to know if you have any of these conditions: kidney disease liver disease stomach problems like colitis an unusual or allergic reaction to clindamycin, lincomycin, or other medicines, foods, dyes like tartrazine or preservatives or trying to get breast-feeding What should I watch for while using this medicine? Tell your doctor or healthcare professional if your symptoms do not start to get better or if they get worse. Do not treat diarrhea with over the counter products. Contact your doctor if you have diarrhea that lasts more than 2 days or if it is severe and watery. Tramadol Hydrochloride Oral tablet What is this medicine? TRAMADOL (TRA ma dole) is a pain reliever. It is used to treat moderate to severe pain in adults. How should I use this medicine? Take this medicine by mouth with a full glass of water. Follow the directions on the prescription label. If the medicine upsets your stomach, take it with food or milk. Do not take more medicine than you are told to take. Talk to your territory representative regarding the use of this medicine in children. Special care may be needed. What side effects may I notice from receiving this medicine? Side effects that you should report to your doctor or health residential care officer as soon as possible: allergic reactions like skin rash, itching or hives, swelling of the face, lips, or tongue breathing difficulties, wheezing confusion itching light headedness or fainting spells redness, blistering, peeling or loosening of the skin, including inside the mouth seizures Side effects that usually do not require medical attention (report to your doctor or health residential care officer if they continue or are bothersome): constipation dizziness drowsiness headache nausea, vomiting What may interact with this medicine? Do not take this medicine with any of the following medications: MAOIs like Carbex, Eldepryl, Marplan, Nardil, and Parnate This medicine may also interact with the following medications: alcohol or medicines that contain alcohol antihistamines benzodiazepines bupropion carbamazepine or oxcarbazepine clozapine cyclobenzaprine digoxin furazolidone linezolid medicines for depression, anxiety, or psychotic disturbances medicines for migraine headache like almotriptan, eletriptan, frovatriptan, naratriptan, rizatriptan, sumatriptan, zolmitriptan medicines for pain like pentazocine, buprenorphine, butorphanol, meperidine, nalbuphine, and propoxyphene medicines for sleep muscle relaxants naltrexone phenobarbital phenothiazines like perphenazine, thioridazine, chlorpromazine, mesoridazine, fluphenazine, prochlorperazine, promazine, and trifluoperazine procarbazine warfarin What if I miss a dose? If you miss a dose, take it as soon as you can. If it is almost time for your next dose, take only that dose. Do not take double or extra doses. Where should I keep my medicine? Keep out of the reach of children. Store at room temperature between 15 and 30 degrees C (59 and 86 degrees F). Keep container tightly closed. Throw away any unused medicine after the expiration date. What should I tell my health care provider before I take this medicine? They need to know if you have any of these conditions: brain tumor depression drug abuse or addiction head injury if you frequently drink alcohol containing drinks kidney disease or trouble passing urine liver disease lung disease, asthma, or breathing problems seizures or epilepsy suicidal thoughts, plans, or attempt; a previous suicide attempt by you or a family member an unusual or allergic reaction to tramadol, codeine, other medicines, foods, dyes, or preservatives or trying to get breast-feeding What should I watch for while using this medicine? Tell your doctor or health residential care officer if your pain does not go away, if it gets worse, or if you have new or a different type of pain. You may develop tolerance to the medicine. Tolerance means that you will need a higher dose of the medicine for pain relief. Tolerance is normal and is expected if you take this medicine for a long time. Do not suddenly stop taking your medicine because you may develop a severe reaction. Your body becomes used to the medicine. This does NOT mean you are addicted. Addiction is a behavior related to getting and using a drug for a non-medical reason. If you have pain, you have a medical reason to take pain medicine. Your doctor will tell you how much medicine to take. If your doctor wants you to stop the medicine, the dose will be slowly lowered over time to avoid any side effects. You may get drowsy or dizzy. Do not drive, use machinery, or do anything that needs mental alertness until you know how this medicine affects you. Do not stand or sit up quickly, especially if you are an older patient. This reduces the risk of dizzy or fainting spells. Alcohol can increase or decrease the effects of this medicine. Avoid alcoholic drinks. You may have constipation. Try to have a bowel movement at least every 2 to 3 days. If you do not have a bowel movement for 3 days, call your doctor or health residential care officer. Your mouth may get dry. Chewing sugarless gum or sucking hard candy, and drinking plenty of water may help. Contact your doctor if the problem does not go away or is severe. You have been given the following additional information: Dental Pain Clindamycin Hydrochloride Oral capsule Tramadol Hydrochloride Oral tablet (Electronically signed by Rivka Drake A.R.N.P. 01/03/2017 17:56)
--- NOTE | 2017-01-03 17:56 | ED MED RECONCILIATION SUMMARY ---
Patient: DANETTE JIMENEZ Medication Reconciliation Report [facility] VisitID: [id number] [address] [place] [address] 21y, F Registration Date/Time: 01/03/2017 Weight: 106.5 kg Height/Length: 67 in. BMI: 36.8 ALLERGIES: Amoxicillin The patient's Home Medications are listed below: THE FOLLOWING MEDICATIONS NEED TO BE RECONCILED: Nextplanan The source(s) of the original Home Medication information: Not obtained. The following Medications were given to the patient in the Emergency Department: None. The following Medications were prescribed to the patient: Cleocin 150 mg: take 1 capsule orally every 8 hours for 7 days. No refill. -- Rivka Drake A.R.N.P. Ultram 50 mg tablets: take 1-2 orally every 6 hours as needed for pain. Dispense twenty (20). No refills. Substitution is permissible. -- Rivka Drake A.R.N.P.
== END 2017-01-03 15:15 | disposition home or self-care (01) ==
LOC: ED SRH 14:31
DX: K08.89 Other specified disorders of teeth and supporting structures (principal); K21.9 Gastro-esophageal reflux disease without esophagitis; F17.210 Nicotine dependence, cigarettes, uncomplicated; Z88.0 Allergy status to penicillin